=== PATIENT | female | born 1960 | race Caucasian/White ===

== ENCOUNTER 2024-02-01 14:58 | Outpatient (CLI) | payer OTHER, BC | END 2024-02-01 14:59 | disposition home or self-care (01) | LOC: CSHMAMMO 14:58 | PROVIDERS: ATTEND Student in an Organized Health Care Education/Training Program | DX: Z12.31 Encounter for screening mammogram for malignant neoplasm of breast (principal); Z13.820 Encounter for screening for osteoporosis; M85.88 Other specified disorders of bone density and structure, other site | CPT/HCPCS: 77063; 77067; 77080 ==